=== PATIENT | female | born 1970 | race Caucasian/White ===

== ENCOUNTER 2018-01-26 09:40 | Day surgery (SDC) | payer OTHER ==
[2018-01-26] MEDS: DEXAMETHASONE 2 MG TAB PO (09:30)
[~2018-01-26 09:40] MED LIST: SEVOFLURANE 15 MIN
[2018-01-26] MEDS ORDERED: CEFAZOLIN 2 GM/50 ML (PMX) 50 ML IVPB (11:00)
[2018-01-26] MEDS ORDERED: BUPIVACAINE 0.5% (SDV) 30 ML, morphine SULFATE (PF) 8 MG, EPINEPHrine 0.3 MG, KETOROLAC... IRR (11:00)
[2018-01-26] MEDS: GABAPENTIN 300 MG CAP PO (11:00)
[2018-01-26] MEDS ORDERED: TRANEXAMIC ACID 1,000 MG in DEXTROSE 5% 100 ML IVPB (11:00)
[2018-01-26] MEDS ORDERED: MIDAZOLAM 1 MG/ML 2 ML INJ (12:34)
[2018-01-26] MEDS ORDERED: FENTAnyl 50 MCG/ML VIAL (12:34)
[2018-01-26] MEDS ORDERED: ROPIVACAINE 0.5 % 30 ML VIAL (12:35)
[2018-01-26] MEDS ORDERED: FENTAnyl 50 MCG/ML VIAL IV ×3 (13:30)
[2018-01-26] MEDS ORDERED: hydrALAzine 20 MG INJ IV (13:30)
[2018-01-26] MEDS ORDERED: LABETALOL HCL 20MG INJ IV (13:30)
[2018-01-26] MEDS ORDERED: MEPERIDINE 25 MG INJ IV (13:30)
[2018-01-26] MEDS ORDERED: PROCHLORPERAZINE 10 MG INJ IV (13:30)
[2018-01-26] MEDS ORDERED: ONDANSETRON 4 MG INJ IV (13:30)
[2018-01-26] MEDS ORDERED: HYDROmorphONE 1 MG/5 ML IV SYRINGE IV ×3 (13:30)
[2018-01-26] MEDS ORDERED: DIPHENHYDRAMINE 50 MG INJ IV (13:30)
[2018-01-26] MEDS ORDERED: ROCURONIUM 50 MG INJ (13:50)
[2018-01-26] MEDS ORDERED: SUCCINYLCHOLINE CHLORIDE 100 MG/5 ML SYG IV (13:50)
[2018-01-26] MEDS ORDERED: PROPOFOL 20 ML (13:50)
[2018-01-26] MEDS ORDERED: LIDOCAINE 2% (SDV) 5 ML INJ (13:50)
[2018-01-26] MEDS ORDERED: CEFAZOLIN 1 GM INJ (13:59)
[2018-01-26] MEDS ORDERED: METOCLOPRAMIDE 10 MG INJ (14:04)
[2018-01-26] MEDS ORDERED: ONDANSETRON 4 MG INJ (14:04)
[2018-01-26] MEDS ORDERED: DEXAMETHASONE 4 MG/ML 1 ML INJ (14:04)
[2018-01-26] MEDS ORDERED: FAMOTIDINE 20 MG INJ (14:04)
[2018-01-26] MEDS ORDERED: HYDROmorphONE 2 MG/ML SYG (14:21)
[2018-01-26] MEDS ORDERED: GLYCOPYRROLATE 0.4 MG INJ (15:08)
[2018-01-26] MEDS ORDERED: NEOSTIGMINE 3 MG/3 ML SYRINGE (15:08)
[2018-01-26] MEDS ORDERED: SUGAMMADEX SODIUM 200 MG/2 ML VIAL IV (15:15)
== END 2018-01-26 17:26 | disposition home or self-care (01) ==
LOC: SDS 09:40
DX: M75.41 Impingement syndrome of right shoulder (principal); M19.011 Primary osteoarthritis, right shoulder; M75.101 Unspecified rotator cuff tear or rupture of right shoulder, not specified as traumatic; K21.9 Gastro-esophageal reflux disease without esophagitis
CPT/HCPCS: 29824